=== PATIENT | female | born 1990 | race American Indian/Alaskan Native ===

== ENCOUNTER 2016-12-12 18:39 | Emergency (ER) | payer MEDICAID ==
[2016-12-12 19:27] VITALS: BP 115/74
[2016-12-12] MEDS ORDERED: Cephalexin 250 MG Cap PO ONE (19:40)
[2016-12-12] MEDS ORDERED: Diphtheria,Pertussis(Acell),Tetanus Vaccine 0.5 ML SDV IM ONE (19:40)
--- NOTE | 2016-12-12 19:44 | EDM.PDOC ---
ED HPI ANIMAL BITE - General Time Seen by Provider: 12/12/16 19:41 Chief Complaint: Bite:Animal, Insect Stated Complaint: FERRAL CAT BIT TO LEFT ARM Source of Information: Reports: Patient History Limitations: Reports: No limitations - History of Present Illness INITIAL COMMENTS - FREE TEXT/NARRATIVE: states a stray cat ran into house and was running all over and tried to get it out then it bit her. but they manage to capture the cat and brought it to the hospital. - Related Data Allergies Allergy/AdvReac Type Severity Reaction Status Date / Time No Known Allergies Allergy Verified 12/12/16 19:21 Home Meds: Home Meds Omeprazole Magnesium [Prilosec Otc] 20 mg PO DAILY 06/21/14 [History] PNV95/Ferrous Fumarate/FA [ Multivitamins] 1 each PO DAILY 06/21/14 [ History] Aspirin 81 mg PO BRK 12/12/16 [History] Past Medical History HEENT History: Reports: None Cardiovascular History: Reports: None Respiratory History: Reports: None Gastrointestinal History: Reports: None Genitourinary History: Reports: None GROUNDS KEEPER History: Reports: None Musculoskeletal History: Reports: None Neurological History: Reports: None Psychiatric History: Reports: None Endocrine/Metabolic History: Reports: None Hematologic History: Reports: None Oncologic (Cancer) History: Reports: None Dermatologic History: Reports: None - Past Surgical History Female Surgical History: Reports: section Other Female Surgeries/Procedures: second , 1 child at home Social & Family History - Tobacco Use Smoking Status *Q: Never Smoker Years of Tobacco use: 1 Used Tobacco, but Quit: Yes Month Tobacco Last Used: October Second Hand Smoke Exposure: No - Alcohol Use Days Per Week of Alcohol Use: 0 - Recreational Drug Use Recreational Drug Use: No - Living Situation & Occupation Living situation: Reports: with significant other Occupation: employed ED ROS GENERAL - Review of Systems Review Of Systems: ROS reveals no pertinent complaints other than HPI. ED EXAM, ANIMAL BITE - Physical Exam Exam: See Below Exam Limited By: No limitations General Appearance: alert, WD/WN, no apparent distress Ears: hearing grossly normal Throat/Mouth: Normal voice, No airway compromise Head: atraumatic Neck: non-tender, full range of motion Respiratory/Chest: no respiratory distress Cardiovascular: regular rate, rhythm GI/Abdominal: soft, non tender Extremities: other (left wrist cat bite francoise, some punctures without bleeding, rom NL, NV wnl.) Neurological: alert, oriented, normal cognition, normal gait, no motor/sensory deficits Psychiatric: normal affect, normal mood Skin Exam: Normal color, Warm/dry Course - Vital Signs Last Recorded V/S: Last Vital Signs Temp 36.1 C 12/12/16 19:23 Pulse 95 12/12/16 19:23 Resp 16 12/12/16 19:23 BP 115/74 12/12/16 19:23 Pulse Ox 97 12/12/16 19:23 - Orders/Labs/Meds Orders: Active Orders 24 hr Category Date Time Status Vaccines to be Administered [RC] PER UNIT ROUTINE Care 12/12/16 19:40 Ordered Cephalexin [Keflex] Med 12/12/16 19:40 Once 250 mg PO ONETIME ONE Diphth,Pertuss(Acell),Tet Vac [Adacel] Med 12/12/16 19:40 Once 0.5 ml IM .ONCE ONE Departure - Departure Time of Disposition: 19:43 Disposition: Home, Self-Care 01 Condition: good Clinical Impression: Cat bite involving extremity Instructions: Animal Bite, [id number] Forms: ED Department Discharge Additional Instructions: 1) keep wound clean dry covered 2) follow up at clinic or recheck as needed rx given: keflex 250mg qid x 40 - My Orders Last 24 Hours: My Active Orders 12/12/16 19:40 Vaccines to be Administered [RC] PER UNIT ROUTINE Cephalexin [Keflex] 250 mg PO ONETIME ONE Diphth,Pertuss(Acell),Tet Vac [Adacel] 0.5 ml IM .ONCE ONE - Assessment/Plan Last 24 Hours: My Active Orders 12/12/16 19:40 Vaccines to be Administered [RC] PER UNIT ROUTINE Cephalexin [Keflex] 250 mg PO ONETIME ONE Diphth,Pertuss(Acell),Tet Vac [Adacel] 0.5 ml IM .ONCE ONE
== END 2016-12-12 20:05 | disposition home or self-care (01) ==
LOC: DL.ED 18:39
DX: S61.532A Puncture wound without foreign body of left wrist, initial encounter (principal); Z79.82 Long term (current) use of aspirin; Z79.899 Other long term (current) drug therapy; W55.01XA Bitten by cat, initial encounter
CPT/HCPCS: 99283; A9270

== ENCOUNTER 2017-01-01 04:27 | Inpatient (IN) | payer MEDICAID, SELFPAY ==
[2017-01-01] MEDS ORDERED: Misoprostol 400 MCG (4 X 100 MCG TAB) RECTAL ONE (06:28)
[2017-01-01] MEDS ORDERED: Sodium Chloride 0.9% 10 ML Syringe FLUSH PRN (06:28)
[2017-01-01] MEDS ORDERED: Carboprost Tromethamine 250 MCG/1 ML Amp IM PRN (06:28)
[2017-01-01] MEDS ORDERED: ceFAZolin 2 GM in Premix Bag 1 BAG IV ONE (06:28)
[2017-01-01] MEDS ORDERED: Methylergonovine 0.2 MG Tab PO PRN (06:28)
[2017-01-01] MEDS ORDERED: Ondansetron 4 MG/2 ML SDV IVPUSH PRN (06:28)
[2017-01-01] MEDS ORDERED: Citric Acid/Sodium Citrate Solution 30 ML Cup PO ONE (06:28)
[2017-01-01] MEDS: Lactated Ringers 1,000 ML IV SCH ×3 (06:30→17:26)
[2017-01-01] MEDS ORDERED: Ondansetron 4 MG/2 ML SDV IV PRN (06:42)
[2017-01-01] MEDS ORDERED: Naloxone 2 MG/2 ML Syringe IVPUSH PRN (06:42)
[2017-01-01] MEDS ORDERED: Acetaminophen/oxyCODONE 325-5 MG Tab PO PRN (06:42)
[2017-01-01] MEDS ORDERED: Methylergonovine 0.2 MG/1 ML Amp IM PRN (06:42)
[2017-01-01] MEDS ORDERED: Acetaminophen 325 MG Tab PO PRN (06:42)
[2017-01-01] MEDS ORDERED: diphenhydrAMINE 50 MG/ML SDV IVPUSH PRN (06:42)
[2017-01-01] MEDS ORDERED: ePHEDrine 50 MG/ML SDV IVPUSH PRN (06:42)
[2017-01-01] MEDS ORDERED: Oxytocin/Normal Saline 30 UNIT/500 ML BAG IV SCH (06:45)
[2017-01-01] MEDS ORDERED: Ketorolac 30 MG/ML SDV IVPUSH ONE (06:51)
[2017-01-01] MEDS ORDERED: Oxytocin/Normal Saline 60 UNIT/1,000 ML BAG ONE (07:07)
[2017-01-01] MEDS ORDERED: Midazolam 1 MG/ML 2 ML SDV ONE (07:30)
[2017-01-01] MEDS ORDERED: Morphine PF 5 MG/10 ML SDV ONE ×2 (07:31→15:57)
--- NOTE | 2017-01-01 07:35 | PCM.PREANE ---
Preanesthetic Assessment - Procedure Proposed Procedure: Section - Anesthesia/Transfusion/Family Hx Anesthesia History: Prior Anesthesia Without Reaction Type of Anesthesia Reaction: Unknown Family History of Anesthesia Reaction: No Transfusion History: No Prior Transfusion(s) Intubation History: Unknown - Review of Systems General: No Symptoms Pulmonary: No Symptoms Cardiovascular: No Symptoms Gastrointestinal: No symptoms Neurological: No Symptoms Other: Reports: None - Physical Assessment NPO Status Date: 12/31/16 NPO Status Time: 21:00 O2 Sat by Pulse Oximetry: 95 Respiratory Rate: 18 Vital Signs: Last Vital Signs Temp 36.8 C 01/01/17 06:14 Pulse 96 01/01/17 06:14 Resp 18 01/01/17 06:14 BP 111/80 01/01/17 06:14 Pulse Ox 95 01/01/17 06:14 Height: 1.73 m Weight: 89.358 kg ASA Class: 2 Mental Status: Alert & Oriented x3 Airway Class: Mallampati = 2 Dentition: Reports: Normal Dentition ROM/Head Extension: Full Lungs: Clear to auscultation, Normal respiratory effort Cardiovascular: Regular Rate, Regular Rhythm - Lab Values: Laboratory Last Values WBC 8.5 10^3/uL (5.0-10.0) 01/01/17 06:20 RBC 3.90 10^6/uL (4.2-5.4) L 01/01/17 06:20 Hgb 12.8 g/dL (12.0-16.0) 01/01/17 06:20 Hct 38.0 % (37.0-47.0) 01/01/17 06:20 MCV 97.4 fL (80-100) 01/01/17 06:20 MCH 32.8 pg (27.0-34.0) 01/01/17 06:20 MCHC 33.7 g/dL (33.0-35.0) 01/01/17 06:20 Plt Count 205 10^3/uL (150-450) 01/01/17 06:20 - Allergies Allergies/Adverse Reactions: Allergies Allergy/AdvReac Type Severity Reaction Status Date / Time No Known Allergies Allergy Verified 01/01/17 07:10 - Blood Blood Available: No - Anesthesia Plan Pre-Op Medication Ordered: None - Acknowledgements Anesthesia Type Planned: Spinal, MAC Pt an Appropriate Candidate for the Planned Anesthesia: Yes Alternatives and Risks of Anesthesia Discussed w Pt/Guardian: Yes Pt/Guardian Understands and Agrees with Anesthesia Plan: Yes PreAnesthesia Questionnaire HEENT History: Reports: None Cardiovascular History: Reports: None Respiratory History: Reports: None Gastrointestinal History: Reports: None Genitourinary History: Reports: None PROMOTIONS INTERN History: Reports: Musculoskeletal History: Reports: None Neurological History: Reports: None Psychiatric History: Reports: None Endocrine/Metabolic History: Reports: None Hematologic History: Reports: None Oncologic (Cancer) History: Reports: None Dermatologic History: Reports: None - Past Surgical History Female Surgical History: Reports: section Other Female Surgeries/Procedures: second , 1 child at home - SUBSTANCE USE Smoking Status *Q: Never Smoker Second Hand Smoke Exposure: No Days Per Week of Alcohol Use: 0 Recreational Drug Use History: No - HOME MEDS Home Medications: Home Meds Omeprazole Magnesium [Prilosec Otc] 20 mg PO DAILY 06/21/14 [History] PNV95/Ferrous Fumarate/FA [ Multivitamins] 1 each PO DAILY 06/21/14 [ History] Aspirin 81 mg PO BRK 12/12/16 [History] - CURRENT (IN HOUSE) MEDS Current Meds: Current Medications Acetaminophen (Tylenol) 650 mg PO Q6H PRN PRN Reason: mild pain or fever Carboprost Tromethamine (Hemabate Ds) 250 mcg IM ASDIRECTED PRN PRN Reason: Excessive vaginal bleeding Stop: 01/08/17 06:29 Diphenhydramine HCl (Benadryl) 25 mg IVPUSH Q6H PRN PRN Reason: Itching or Nausea Docusate Sodium (Colace) 100 mg PO Q12H PRN PRN Reason: Constipation Ephedrine Sulfate (Ephedrine Sulfate) 5 mg IVPUSH SEECOMMENT PRN PRN Reason: Other Ferrous Sulfate (Ferrous Sulfate) 325 mg PO BRK ALICE Oxytocin/Sodium Chloride (Pitocin In Ns 30 Unit/500 Ml) 30 unit in 500 mls @ 500 mls/hr IV TITRATE ALICE; 500 MUNITS/MIN PRN Reason: Protocol Lactated Ringer's (Ringers, Lactated) 1,000 mls @ 125 mls/hr IV ASDIRECTED ALICE Ibuprofen (Motrin) 800 mg PO Q8H PRN PRN Reason: mild pain or fever Ketorolac Tromethamine (Toradol) 15 mg IVPUSH Q6H ALICE Stop: 01/02/17 01:01 Methylergonovine Maleate (Methergine) 0.2 mg PO ONETIME PRN PRN Reason: Excessive vaginal bleeding Methylergonovine Maleate (Methergine) 0.2 mg IM ONETIME PRN PRN Reason: Excessive Vaginal Bleeding Naloxone HCl (Narcan) 0.1 mg IVPUSH SEECOMMENT PRN PRN Reason: Respiratory Depression Ondansetron HCl (Zofran) 4 mg IVPUSH Q4H PRN PRN Reason: Nausea/Vomiting Ondansetron HCl (Zofran) 4 mg IV Q4H PRN PRN Reason: Nausea/Vomiting Oxycodone/Acetaminophen (Percocet 325-5 Mg) 1 tab PO Q4H PRN PRN Reason: Pain (moderate 4-6) Oxycodone/Acetaminophen (Percocet 325-5 Mg) 2 tab PO Q4H PRN PRN Reason: Pain (moderate 4-6) Prenat Multivit/Neurology Professor/Iron/Folic Ac ( Plus Iron) 1 each PO DAILY [facility] Simethicone (Simethicone) 80 mg PO Q4H PRN PRN Reason: Gas Sodium Chloride (Saline Flush) 10 ml FLUSH ASDIRECTED PRN PRN Reason: Keep Vein Open Discontinued Medications Citric Acid/Sodium Citrate (Bicitra Solution) 30 ml PO ONETIME ONE Stop: 01/01/17 06:29 Cefazolin Sodium/Dextrose 2 gm (/ Premix) 50 mls @ 100 mls/hr IV ONETIME ONE Stop: 01/01/17 06:57 Oxytocin/Sodium Chloride (Pitocin In Ns 30 Unit/500 Ml) Confirm Administered Dose 60 unit in 1,000 mls @ as directed .ROUTE .STK-MED ONE Stop: 01/01/17 07:08 Ketorolac Tromethamine (Toradol) 30 mg IVPUSH ONETIME ONE Stop: 01/01/17 06:52 Misoprostol (Cytotec) 800 mcg RECTAL ASDIRECTED ONE Stop: 01/01/17 06:29
--- NOTE | 2017-01-01 11:07 | OR ---
DATE: 01/01/2017 PREOPERATIVE DIAGNOSES: 1. A 39 and 0/7th weeks based on last menstrual period confirmed with 20-week ultrasound. 2. History of preeclampsia. 3. History of prior section. 4. History of low TSH in the first trimester resolved spontaneously. 5. Poor growth initially noted and since has resolved. 6. Blood type O positive. Rubella immune. Group B strep positive. 7. Cat bite in the 3rd trimester treated with rabies shots, which were completed 2 days prior to admission. POSTOPERATIVE DIAGNOSES: 1. A 39 and 0/7th weeks based on last menstrual period confirmed with 20-week ultrasound. 2. History of preeclampsia. 3. History of prior section. 4. History of low TSH in the first trimester resolved spontaneously. 5. Poor growth initially noted and since has resolved. 6. Blood type O positive. Rubella immune. Group B strep positive. 7. Cat bite in the 3rd trimester treated with rabies shots, which were completed 2 days prior to admission. 8. Status post elective repeat section at term plus delivery of viable female . PROCEDURE: Elective Repeat Low Transverse Section SURGEON: Corrine Mckeon MD LANDSCAPE SPECIALIST: Tania Gallardo MD. SECOND WIRE TRANSFER CLERK: Osiris Farias MS III CONSENT: Discussed with the patient and her family. INDICATIONS: Risks, benefits, and alternatives of elective repeat section at term including risk of infection, plan for preoperative antibiotics, risk of blood loss to the point of requiring a blood transfusion as well as inherent risks such as contraction of blood borne disease, introduction of antibodies not previously known to her or transfusion reaction, potential injury during surgery including but not limited to disruption of large blood vessels or nerves, muscles, bladder, uterus, fallopian tubes, ovaries, intestines, and any other internal or adjacent structures, even potential risk of injury to the baby, potential for complications for mom and/or baby, which would require transfer to a tertiary center and even remote risk of . The patient's questions were answered. She agreed to proceed. Consent form signed and in the chart. BRIEF HISTORY: The patient is a 26-year-old with the above-listed history who presents to the hospital for elective repeat at term. See history and physical for full details. DETAILS: The patient was brought down to the operating room and spinal anesthesia obtained. She was laid in the dorsal supine position with leftward tilt, and Hubbard indwelling catheter was placed. She was then prepped and draped in the usual fashion and anesthesia tested. She had a skin incision at 8:10 a.m. which is carried down to the underlying fascia using a combination of finger dissection and cautery. Fascia was incised in the midline and extended bilaterally with traction and Lacey scissors. Superior fascial edge grasped, tented up with Anil's and rectus muscles dissected off bluntly and with cautery. Inferior fascial edge was then grasped tented up, and rectus muscles also dissected off with traction and cautery. Peritoneal layer opened with blunt finger dissection and Donavan retractor then placed. Hysterotomy incision was made with scalpel and final penetration of the uterus with a blunt penetration using my finger and uterine incision site opened with Pardo method. 's head was then brought up through the incision site and with fundal pressure. Baby's head was delivered. Nuchal cord was noted and reduced bluntly. Mouth and nose were bulb suctioned and remainder of delivered thereafter. Three-vessel umbilical cord doubly clamped and cut. Baby taken over to the warmer for further evaluation. Cord blood sample obtained. Placenta then delivered by gentle cord traction and concomitant uterine massage. Uterus cleared off any clots and debris. Hysterotomy site then closed with a running lock stitch of 0 Vicryl in the usual fashion. Second layer of imbricated 0 Vicryl was then used. There were some additional areas of bleeding, which were controlled with 2 [id number] sutures. This layer was then irrigated and hemostasis confirmed. Donavan retractor removed. Pericolic gutters were cleared of any clots and debris. Hysterotomy site reinspected and remained hemostatic. Peritoneal layer was then closed with a running stitch of 0 Vicryl, which came together nicely. This layer was then irrigated and fascia closed with a running stitch of 0 looped PDS in the usual fashion. Subcutaneous tissues irrigated and cleared of any clots and debris and subcutaneous bleeders controlled with cautery and then skin closed with a 4-0 Monocryl suture on a Brice needle. The patient tolerated procedure well. Sponge and instrument counts were correct x3 and the patient will be taken to the PACU for recovery and down to see her baby. FINDINGS: Normal internal anatomy. Scarring was minimal considering prior surgical history. Baby is a girl weighing 3110 g, 6 pounds 14 ounces. scores of 9 and 9. ESTIMATED BLOOD LOSS: 700 mL. URINE OUTPUT: 200 mL. IV FLUIDS: 1700 mL of crystalloids. COMPLICATIONS: None. Note, baby's delivery time was 8:18 a.m. and stop time for surgery 9:00 a.m. [facility] /[id number] REBECCA
[2017-01-01] MEDS ORDERED: Ketorolac 30 MG/ML SDV IVPUSH SCH (13:00)
[2017-01-01] MEDS ORDERED: Midazolam 1 MG/ML 2 ML SDV IV ONE (15:57)
[2017-01-01] MEDS ORDERED: fentaNYL 100 MCG/2 ML SDV ONE (15:57)
[2017-01-01] MEDS ORDERED: ePHEDrine 50 MG/ML SDV IV ONE (15:57)
[2017-01-01] MEDS ORDERED: Ondansetron 4 MG/2 ML SDV IV ONE (15:57)
[2017-01-01] MEDS: Ketorolac 30 MG/ML SDV IVPUSH SCH ×2 (16:19→21:21)
[2017-01-01] MEDS: Ferrous Sulfate 325 MG Tab PO SCH (17:45)
[2017-01-01] MEDS: Prenatal Multivitamin with Calcium/Folic Acid/Iron Tab PO SCH (17:46)
[2017-01-01] MEDS: Docusate Sodium 100 MG Cap PO PRN (21:21)
[2017-01-01] MEDS: Acetaminophen/oxyCODONE 325-5 MG Tab PO PRN (21:48)
[2017-01-02] MEDS: Acetaminophen/oxyCODONE 325-5 MG Tab PO PRN ×5 (01:59→21:18)
[2017-01-02] MEDS: Ketorolac 30 MG/ML SDV IVPUSH SCH (03:14)
--- NOTE | 2017-01-02 08:46 | PCM.PNPP ---
- General Info Date of Service: 01/02/17 (POD # 1 S/P Repeat section) Functional Status: Reports: pain controlled, tolerating diet, ambulating - Review of Systems General: Reports: No Symptoms HEENT: Reports: no symptoms Pulmonary: Reports: no symptoms Cardiovascular: Reports: No Symptoms Gastrointestinal: Reports: No symptoms Genitourinary: Reports: no symptoms Musculoskeletal: Reports: no symptoms Skin: Reports: no symptoms Neurological: Reports: No Symptoms Psychiatric: Reports: no symptoms - General Info Date of Service: 01/02/17 (POD # 1 S/P Repeat section) - Patient Data Vital Signs - most recent: Last Vital Signs Temp 97.5 F 01/02/17 05:00 Pulse 64 01/02/17 05:00 Resp 16 01/02/17 05:00 BP 110/62 01/02/17 05:00 Pulse Ox 100 01/02/17 05:00 Weight - most recent: 197 lb I&O - last 24 hours: Intake & Output 01/01/17 01/02/17 01/02/17 22:59 06:59 14:59 Intake Total 1000 1000 Output Total 400 1600 Balance 600 -600 Lab Results - last 24 hrs: Laboratory Results - last 24 hr 01/01/17 Range/Units 06:20 Blood Type O POSITIVE Gel Antibody Screen Negative Med Orders - Current: Current Medications Acetaminophen (Tylenol) 650 mg PO Q6H PRN PRN Reason: mild pain or fever Carboprost Tromethamine (Hemabate Ds) 250 mcg IM ASDIRECTED PRN PRN Reason: Excessive vaginal bleeding Stop: 01/08/17 06:29 Diphenhydramine HCl (Benadryl) 25 mg IVPUSH Q6H PRN PRN Reason: Itching or Nausea Docusate Sodium (Colace) 100 mg PO Q12H PRN PRN Reason: Constipation Last Admin: 01/01/17 21:21 Dose: 100 mg Ephedrine Sulfate (Ephedrine Sulfate) 5 mg IVPUSH SEECOMMENT PRN PRN Reason: Other Ferrous Sulfate (Ferrous Sulfate) 325 mg PO BRK ALICE Last Admin: 01/01/17 17:45 Dose: Not Given Oxytocin/Sodium Chloride (Pitocin In Ns 30 Unit/500 Ml) 30 unit in 500 mls @ 500 mls/hr IV TITRATE ALICE; 500 MUNITS/MIN PRN Reason: Protocol Last Titration: 01/01/17 11:10 Dose: 0 mls/hr Lactated Ringer's (Ringers, Lactated) 1,000 mls @ 125 mls/hr IV ASDIRECTED [facility] Last Admin: 01/01/17 17:26 Dose: 125 mls/hr Ibuprofen (Motrin) 800 mg PO Q8H PRN PRN Reason: mild pain or fever Methylergonovine Maleate (Methergine) 0.2 mg PO ONETIME PRN PRN Reason: Excessive vaginal bleeding Methylergonovine Maleate (Methergine) 0.2 mg IM ONETIME PRN PRN Reason: Excessive Vaginal Bleeding Naloxone HCl (Narcan) 0.1 mg IVPUSH SEECOMMENT PRN PRN Reason: Respiratory Depression Ondansetron HCl (Zofran) 4 mg IVPUSH Q4H PRN PRN Reason: Nausea/Vomiting Ondansetron HCl (Zofran) 4 mg IV Q4H PRN PRN Reason: Nausea/Vomiting Oxycodone/Acetaminophen (Percocet 325-5 Mg) 1 tab PO Q4H PRN PRN Reason: Pain (moderate 4-6) Oxycodone/Acetaminophen (Percocet 325-5 Mg) 2 tab PO Q4H PRN PRN Reason: Pain (moderate 4-6) Last Admin: 01/02/17 06:17 Dose: 2 tab Prenat Multivit/[place]/Iron/Folic Ac ( Plus Iron) 1 each PO DAILY [facility] Last Admin: 01/01/17 17:46 Dose: Not Given Simethicone (Simethicone) 80 mg PO Q4H PRN PRN Reason: Gas Sodium Chloride (Saline Flush) 10 ml FLUSH ASDIRECTED PRN PRN Reason: Keep Vein Open Discontinued Medications Citric Acid/Sodium Citrate (Bicitra Solution) 30 ml PO ONETIME ONE Stop: 01/01/17 06:29 Last Admin: 01/01/17 07:30 Dose: 30 ml Ephedrine Sulfate (Ephedrine Sulfate) 10 mg IV .STK-MED ONE Stop: 01/01/17 15:58 Fentanyl (Sublimaze) 20 mcg .XX .STK-MED ONE Stop: 01/01/17 15:58 Cefazolin Sodium/Dextrose 2 gm (/ Premix) 50 mls @ 100 mls/hr IV ONETIME ONE Stop: 01/01/17 06:57 Last Admin: 01/01/17 07:44 Dose: 100 mls/hr Oxytocin/Sodium Chloride (Pitocin In Ns 30 Unit/500 Ml) Confirm Administered Dose 60 unit in 1,000 mls @ as directed .ROUTE .STK-MED ONE Stop: 01/01/17 07:08 Ketorolac Tromethamine (Toradol) 15 mg IVPUSH Q6H [facility] Stop: 01/02/17 01:01 Last Admin: 01/01/17 16:25 Dose: Not Given Ketorolac Tromethamine (Toradol) 30 mg IVPUSH ONETIME ONE Stop: 01/01/17 06:52 Last Admin: 01/01/17 09:45 Dose: 30 mg Ketorolac Tromethamine (Toradol) 15 mg IVPUSH Q6H [facility] Stop: 01/02/17 03:31 Last Admin: 01/02/17 03:14 Dose: 15 mg Midazolam HCl (Versed 1 Mg/Ml) Confirm Administered Dose 2 mg .ROUTE .STK-MED ONE Stop: 01/01/17 07:31 Midazolam HCl (Versed 1 Mg/Ml) 2 mg IV .STK-MED ONE Stop: 01/01/17 15:58 Misoprostol (Cytotec) 800 mcg RECTAL ASDIRECTED ONE Stop: 01/01/17 06:29 Last Admin: 01/01/17 16:25 Dose: Not Given Morphine Sulfate (Duramorph Pf) Confirm Administered Dose 5 mg .ROUTE .STK-MED ONE Stop: 01/01/17 07:32 Morphine Sulfate (Duramorph Pf) 0.25 mg .XX .STK-MED ONE Stop: 01/01/17 15:58 Ondansetron HCl (Zofran) 4 mg IV .STK-MED ONE Stop: 01/01/17 15:58 - Interaction Disposition, : in Room with Family Infant Interaction: Holding Infant Feeding: Breastfed ; Nursed Well Support Person: Significant Other - Recovery Exam Fundal Tone: Firm Fundal Level: At Umbilicus Fundal Placement: Midline Lochia Amount: Small Lochia Color: Rubra/Red Perineum Description: Intact, Minimal Bruising/Swelling Episiotomy/Laceration: None Bladder Status: Indwelling Catheter in Place Urinary Elimination: Indwelling Catheter - Exam General: alert, oriented, cooperative, no acute distress HEENT: Pupils equal, Pupils reactive Neck: supple Lungs: Clear to auscultation, Normal respiratory effort Cardiovascular: Regular Rate, Regular Rhythm, No Murmurs Abdomen: bowel sounds present, soft, no tenderness, no distension Extremities: no edema, normal pulses, no tenderness/swelling Skin: warm, dry, intact Wound/Incisions: dressing dry and intact, no drainage Neurological: no new focal deficit Psy/Mental Status: alert, normal affect, normal mood - Problem List Review Problem List Initiated/Reviewed/Updated: Yes - Assessment Assessment:: POD # 1 S/P Repeat section Doing well Good urinary output clear yellow urine Pain controlled. - Plan Plan:: Continue present care Remove Hubbard catheter Remove dressing Increase ambulation Shower
[2017-01-02] MEDS ORDERED: Ibuprofen 800 MG Tab PO PRN (09:00)
[2017-01-02] MEDS: Ferrous Sulfate 325 MG Tab PO SCH (09:13)
[2017-01-02] MEDS: Prenatal Multivitamin with Calcium/Folic Acid/Iron Tab PO SCH (09:13)
[2017-01-02] MEDS: Docusate Sodium 100 MG Cap PO PRN ×2 (09:14→21:18)
[2017-01-02] MEDS: Simethicone 80 MG Tab.Chew PO PRN ×2 (09:21→17:27)
[2017-01-03] MEDS: Acetaminophen/oxyCODONE 325-5 MG Tab PO PRN ×2 (01:24→05:50)
[2017-01-03] MEDS: Ferrous Sulfate 325 MG Tab PO SCH (08:58)
[2017-01-03] MEDS: Prenatal Multivitamin with Calcium/Folic Acid/Iron Tab PO SCH (08:59)
[2017-01-03] MEDS: Docusate Sodium 100 MG Cap PO PRN (09:00)
[2017-01-03] MEDS: Simethicone 80 MG Tab.Chew PO PRN ×2 (09:00→12:49)
--- NOTE | 2017-01-03 10:12 | DISCH ---
INDICATION FOR ADMISSION: Ms. Melendez is a 26-year-old, 2, para 1-0-0-1 female at 39 weeks gestation, who reported to Labor and Delivery for a repeat section at 39 weeks gestation. She had done quite well throughout her . Her only issue was that she had a cat bite in the third trimester and they did give her rabies prophylaxis injections, no issues occurred. She tolerated her section quite well. She went from the operating room to recovery and then to the OB floor. She tolerated the rest of her hospital stay quite well. She was afebrile. Vital signs were stable. She tolerated her diet well. She ambulated well. Her incision did well with no erythema or drainage noted. Her infant did well with breast feeding. She had a viable female , weighing 6 pounds, 14 ounces, 18.5 inches long with scores of 9 at 1 minute, 9 at 5 minutes. No other complications occurred throughout her hospital stay. She was afebrile. Vital signs were stable. LABORATORY AND DIAGNOSTIC STUDIES: On 01/01/2017, WBC 8.5, hemoglobin 12.8, hematocrit 38.0, and platelet count 205,000. 01/03/2017, WBC 9.6, hemoglobin 12.6, hematocrit 37.8, and platelet count 194,000. DISCHARGE INSTRUCTIONS: 1. Discharge to home. 2. Follow up with Dr. Betancourt next week for wound check and check. 3. Follow up 6-week checkup. 4. No douching, tampons, intercourse for 6 weeks. 5. Discharge instructions including activity, followup, medications, diet, and wound care were discussed with the patient. She understands these and is willing to comply with these. 6. Percocet 1 tablet every 8 hours p.r.n., for pain, dispensed #40 with no refills. 7. Ibuprofen 800 mg, 1 tab every 8 hours p.r.n., for pain, dispense #40 with 1 refill. DISCHARGE DIAGNOSES: 1. Thirty-nine week intrauterine . 2. Previous section x1. 3. Cat bite in third trimester of , given rabies prophylaxis injections. 4. Repeat low transverse section via Pfannenstiel skin incision with delivery of a viable female , weighing 6 pounds, 14 ounces, 18.5 Inches long with scores of 9 at 1 minute, 9 at 5 minutes. 5. Spinal anesthesia with Duramorph. [facility] /[id number] MTDD
[2017-01-03 14:41] VITALS: BP 131/76
--- NOTE | 2017-01-04 18:08 | PCM.POSTAN ---
POST ANESTHESIA ASSESSMENT - MENTAL STATUS Mental Status: alert, oriented - VITAL SIGNS Pulse Rate: 85 SaO2: 99 Resp Rate: 18 Blood Pressure: 132/78 Temperature: 36.5 C - RESPIRATORY Respiratory Status: respiratory rate WNL, airway patent, O2 saturation stable - CARDIOVASCULAR CV Status: pulse rate WNL, blood pressure stable - GASTROINTESTINAL GI Status: no symptoms - PAIN Pain Score: 0 - POST OP HYDRATION Hydration Status: adequate & stable (Sitting in bed pain free and deny nausea. Minor itching is reported by patient not to be bothersome.)
== END 2017-01-03 13:47 | disposition home or self-care (01) | DRG 766 ==
LOC: DL.OB 06:05 → OBSVTOIN 08:18
PROVIDERS: ADMIT Family Medicine; ATTEND Family Medicine
PROC: 10D00Z1 Extraction of Products of Conception, Low, Open Approach (ICD-10-PCS; principal; 2017-01-01)
DX: O34.211 Maternal care for low transverse scar from previous cesarean delivery (principal); Z3A.39 39 weeks gestation of pregnancy; Z37.0 Single live birth
CPT/HCPCS: 01961; 36415; 59025; 85025; 85027; 86850; 86900; 86901; A9270-GY; J0690; J1885; J2250; J2274; J2405; J2590; J3010; J7120

== ENCOUNTER 2017-04-08 16:58 | Emergency (ER) | payer MEDICAID ==
[2017-04-08] MEDS ORDERED: Sodium Chloride 0.9% 10 ML Syringe FLUSH PRN (17:53)
[2017-04-08] MEDS ORDERED: Ondansetron 4 MG/2 ML SDV IV ONE ×2 (17:53→19:03)
[2017-04-08] MEDS ORDERED: Sodium Chloride 0.9% 1,000 ML IV ONE (17:53)
[2017-04-08 18:29] LABS: CHLORIDE,CL 107 mmol/L (101-111); SODIUM,NA 140 mmol/L (135-145)
[2017-04-08] MEDS ORDERED: cefTRIAXone 1 GM in Sodium Chloride 0.9% 50 ML IV ONE (18:38)
[2017-04-08] MEDS ORDERED: Ketorolac 30 MG/ML SDV IVPUSH ONE (19:03)
--- NOTE | 2017-04-08 19:09 | EDM.PDOC ---
Scribed by Sinai Alicea 04/08/17 1909 for Mookie Nunes MD <Mookie Nunes - Last Filed: 04/08/17 19:08> ED HPI GENERAL MEDICAL PROBLEM - General Chief Complaint: Abdominal Pain Stated Complaint: DAY 3 OF THROWING UP, SEVERE ABD PAINS, [id number] Time Seen by Provider: 04/08/17 17:27 Source of Information: Reports: Patient, RN, RN Notes Reviewed History Limitations: Reports: No Limitations - History of Present Illness INITIAL COMMENTS - FREE TEXT/NARRATIVE: Wednesday ate chili in evening. Wednesday morning onset of diarrhea then nausea and vomiting later. Then okay after 7 to 8 hours. Wednesday evening ate soup and did okay. At 9 p.m. ate cereal and got sick with nausea, vomiting and diarrhea on Wednesday morning. Been sick with nausea, vomiting, and diarrhea on and off ever since then. Reports on and off fever and chills. Admits to left flank pain. Location: Reports: Abdomen Quality: Reports: Ache Severity: Moderate Improves with: Reports: None Worsens with: Reports: None Associated Symptoms: Reports: No Other Symptoms Left Lower Back Pain Score (Numeric/FACES): 10 - Related Data Allergies Allergy/AdvReac Type Severity Reaction Status Date / Time No Known Allergies Allergy Verified 04/08/17 17:12 Home Meds: Home Meds Desogestrel-Ethinyl Estradiol [[place] 28 Day Tablet] 1 each PO DAILY [History] Past Medical History HEENT History: Reports: None Cardiovascular History: Reports: None Respiratory History: Reports: None Gastrointestinal History: Reports: None Genitourinary History: Reports: None LISW History: Reports: : 2 Para: 2 LMP (Approximate): Other (See Below) (03/25/17, on control x2-1/2 months.) Musculoskeletal History: Reports: None Neurological History: Reports: None Psychiatric History: Reports: None Endocrine/Metabolic History: Reports: None Hematologic History: Reports: None Oncologic (Cancer) History: Reports: None Dermatologic History: Reports: None - Past Surgical History Female Surgical History: Reports: Section (x2, Delivered 3 months ago.) Social & Family History - Family History Family Medical History: Noncontributory - Tobacco Use Smoking Status *Q: Never Smoker Years of Tobacco use: 1 Used Tobacco, but Quit: Yes Month Tobacco Last Used: October Second Hand Smoke Exposure: No - Caffeine Use Caffeine Use: Reports: None - Alcohol Use Days Per Week of Alcohol Use: 0 - Recreational Drug Use Recreational Drug Use: No - Living Situation & Occupation Living situation: Reports: with Significant Other Occupation: Employed ED ROS GENERAL - Review of Systems Review Of Systems: ROS reveals no pertinent complaints other than HPI. ED EXAM, GI/ABD - Physical Exam Exam: See Below Exam Limited By: No Limitations General Appearance: Alert, WD/WN, No Apparent Distress Eyes: Bilateral: Normal Appearance Ears: Normal External Exam, Normal Canal, Hearing Grossly Normal, Normal TMs Nose: Normal Inspection, Normal Mucosa, No Blood Throat/Mouth: Other (dry oral membranes) Head: Atraumatic, Normocephalic Neck: Normal Inspection, Supple, Non-Tender, Full Range of Motion Respiratory/Chest: No Respiratory Distress, Lungs Clear, Normal Breath Sounds, No Accessory Muscle Use, Chest Non-Tender Cardiovascular: Normal Peripheral Pulses, Regular Rate, Rhythm, No Edema, No Gallop, No JVD, No Murmur, No Rub GI/Abdominal Exam: Normal Bowel Sounds, Soft, No Distention, Tender (to palpation at LUQ, LLQ, and suprapubic region. ). No: Guarding, Rigid, Rebound (Female) Exam: Deferred Rectal (Female) Exam: Deferred Back Exam: Normal Inspection, Full Range of Motion, NT Extremities: Normal Inspection, Normal Range of Motion, Non-Tender, Normal Capillary Refill, No Pedal Edema Neurological: Alert, Oriented, CN II-XII Intact, Normal Cognition, Normal Gait, Normal Reflexes, No Motor/Sensory Deficits Psychiatric: Normal Affect, Normal Mood Skin Exam: Warm, Dry, Intact, Normal Color, No Rash Course - Vital Signs Last Recorded V/S: Last Vital Signs Temp 36.8 C 04/08/17 20:18 Pulse 67 04/08/17 20:18 Resp 16 04/08/17 20:18 BP 117/69 04/08/17 20:18 Pulse Ox 99 04/08/17 20:18 - Orders/Labs/Meds Orders: Active Orders 24 hr Category Date Time Status Peripheral IV Care [RC] . DIRECTED Care 04/08/17 17:53 Active CHLAMYDIA TRACHOMATIS/GC AMPLF Routine Lab 04/08/17 17:04 Received CULTURE URINE [RM] Stat Lab 04/08/17 17:04 Received Sodium Chloride 0.9% [Saline Flush] Med 04/08/17 17:53 Active 10 ml FLUSH ASDIRECTED PRN Peripheral IV Insertion Adult [OM.PC] Stat Oth 04/08/17 17:52 Ordered Medication Orders Sodium Chloride (Saline Flush) 10 ml FLUSH ASDIRECTED PRN PRN Reason: Keep Vein Open Last Admin: 04/08/17 18:22 Dose: 10 ml Labs: Laboratory Tests 04/08/17 04/08/17 04/08/17 Range/Units 17:04 17:04 17:04 WBC (5.0-10.0) 10^3/uL RBC (4.2-5.4) 10^6/uL Hgb (12.0-16.0) g/dL Hct (37.0-47.0) % MCV (80-100) fL MCH (27.0-34.0) pg MCHC (33.0-35.0) g/dL Plt Count (150-450) 10^3/uL Neut % (Auto) (42.2-75.2) % Lymph % (Auto) (20.5-50.1) % [place] % (Auto) (2-8) % Eos % (Auto) (1.0-3.0) % Baso % (Auto) (0.0-1.0) % Sodium (135-145) mmol/L Potassium (3.6-5.0) mmol/L Chloride (101-111) mmol/L Carbon Dioxide (21.0-31.0) mmol/L Anion Gap BUN (7-18) mg/dL Creatinine (0.6-1.3) mg/dL Est Cr Clr Drug Dosing mL/min Estimated GFR (MDRD) BUN/Creatinine Ratio Glucose (74-105) mg/dL Calcium (8.4-10.2) mg/dl Total Bilirubin (0.2-1.0) mg/dL AST (10-42) IU/L ALT (10-60) IU/L Alkaline Phosphatase (42-121) IU/L Total Protein (6.7-8.2) g/dl Albumin (3.2-5.5) g/dl Globulin Albumin/Globulin Ratio Urine Color Yellow (YELLOW) Urine Appearance Slightly cloudy (CLEAR) Urine pH 6.0 (5.0-9.0) Ur Specific [place] 1.025 (1.005-1.030) Urine Protein 30 H (NEGATIVE) Urine Glucose (UA) Negative (NEGATIVE) Urine Ketones 40 H (NEGATIVE) Urine Occult Blood Moderate H (NEGATIVE) Urine Nitrite Negative (NEGATIVE) Urine Bilirubin Negative (NEGATIVE) Urine Urobilinogen 0.2 (0.2-1.0) mg/dL Ur Leukocyte Esterase Trace H (NEGATIVE) Urine RBC 20-30 H /HPF Urine WBC 5-10 H (0-5/HPF) /HPF Ur Epithelial Cells Many H /HPF Urine Bacteria Moderate H (0-FEW/HPF) /HPF Urine Mucus Rare /LPF Urine HCG, Qual Negative Urine Opiates Screen Negative (NEGATIVE) Ur Oxycodone Screen Negative (NEGATIVE) Urine Methadone Screen Negative (NEGATIVE) Ur Barbiturates Screen Negative (NEGATIVE) U Tricyclic Antidepress Negative (NEGATIVE) Ur Phencyclidine Scrn Negative (NEGATIVE) Ur Amphetamine Screen Negative (NEGATIVE) U Methamphetamines Scrn Negative (NEGATIVE) Urine MDMA Screen Negative (NEGATIVE) U Benzodiazepines Scrn Negative (NEGATIVE) Urine Cocaine Screen Negative (NEGATIVE) U Marijuana (THC) Screen Negative (NEGATIVE) 04/08/17 04/08/17 Range/Units 18:00 18:00 WBC 11.6 H (5.0-10.0) 10^3/uL RBC 4.27 (4.2-5.4) 10^6/uL Hgb 13.5 (12.0-16.0) g/dL Hct 39.9 (37.0-47.0) % MCV 93.4 (80-100) fL MCH 31.6 (27.0-34.0) pg MCHC 33.8 (33.0-35.0) g/dL Plt Count 203 (150-450) 10^3/uL Neut % (Auto) 86.9 H (42.2-75.2) % Lymph % (Auto) 8.7 L (20.5-50.1) % [place] % (Auto) 4.2 (2-8) % Eos % (Auto) 0.0 L (1.0-3.0) % Baso % (Auto) 0.2 (0.0-1.0) % Sodium 140 (135-145) mmol/L Potassium 4.0 (3.6-5.0) mmol/L Chloride 107 (101-111) mmol/L Carbon Dioxide 22.0 (21.0-31.0) mmol/L Anion Gap 15.0 BUN 14 (7-18) mg/dL Creatinine 1.0 (0.6-1.3) mg/dL Est Cr Clr Drug Dosing 86.75 mL/min Estimated GFR (MDRD) > 60 BUN/Creatinine Ratio 14.00 Glucose 95 (74-105) mg/dL Calcium 9.0 (8.4-10.2) mg/dl Total Bilirubin 0.5 (0.2-1.0) mg/dL AST 20 (10-42) IU/L ALT 14 (10-60) IU/L Alkaline Phosphatase 63 (42-121) IU/L Total Protein 7.7 (6.7-8.2) g/dl Albumin 4.0 (3.2-5.5) g/dl Globulin 3.7 Albumin/Globulin Ratio 1.08 Urine Color (YELLOW) Urine Appearance (CLEAR) Urine pH (5.0-9.0) Ur Specific [place] (1.005-1.030) Urine Protein (NEGATIVE) Urine Glucose (UA) (NEGATIVE) Urine Ketones (NEGATIVE) Urine Occult Blood (NEGATIVE) Urine Nitrite (NEGATIVE) Urine Bilirubin (NEGATIVE) Urine Urobilinogen (0.2-1.0) mg/dL Ur Leukocyte Esterase (NEGATIVE) Urine RBC /HPF Urine WBC (0-5/HPF) /HPF Ur Epithelial Cells /HPF Urine Bacteria (0-FEW/HPF) /HPF Urine Mucus /LPF Urine HCG, Qual Urine Opiates Screen (NEGATIVE) Ur Oxycodone Screen (NEGATIVE) Urine Methadone Screen (NEGATIVE) Ur Barbiturates Screen (NEGATIVE) U Tricyclic Antidepress (NEGATIVE) Ur Phencyclidine Scrn (NEGATIVE) Ur Amphetamine Screen (NEGATIVE) U Methamphetamines Scrn (NEGATIVE) Urine MDMA Screen (NEGATIVE) U Benzodiazepines Scrn (NEGATIVE) Urine Cocaine Screen (NEGATIVE) U Marijuana (THC) Screen (NEGATIVE) Meds: Medications Generic Name Dose Route Start Last Admin Trade Name Freq PRN Reason Stop Dose Admin Sodium Chloride 10 ml 04/08/17 17:53 04/08/17 18:22 Saline Flush FLUSH 10 ml ASDIRECTED PRN Administration Keep Vein Open Discontinued Medications Generic Name Dose Route Start Last Admin Trade Name Idalia PRN Reason Stop Dose Admin Sodium Chloride 1,000 mls @ 999 mls/hr 04/08/17 17:53 04/08/17 18:17 Normal Saline IV 04/08/17 18:53 999 mls/hr .BOLUS ONE Administration Ceftriaxone Sodium 1 gm/ 50 mls @ 100 mls/hr 04/08/17 18:38 04/08/17 18:47 Sodium Chloride IV 04/08/17 19:07 100 mls/hr ONETIME ONE Administration Ketorolac Tromethamine 30 mg 04/08/17 19:03 04/08/17 19:29 Toradol IVPUSH 04/08/17 19:04 30 mg ONETIME ONE Administration Ondansetron HCl 4 mg 04/08/17 17:53 04/08/17 18:17 Zofran IV 04/08/17 17:54 4 mg ONETIME ONE Administration Ondansetron HCl 4 mg 04/08/17 19:03 04/08/17 19:23 Zofran IV 04/08/17 19:04 4 mg ONETIME ONE Administration - Re-Assessments/Exams Free Text/Narrative Re-Assessment/Exam: 04/08/17 19:08 care of pt transferred to Rodger TAYLOR at 1900HR shift change. Departure - Departure Disposition: Home, Self-Care 01 Clinical Impression: Kidney stone on left side UTI (urinary tract infection) Qualifiers: Urinary tract infection type: site unspecified Hematuria presence: with hematuria Qualified Code(s): N39.0 - Urinary tract infection, site not specified ; R31.9 - Hematuria, unspecified - Discharge Information Instructions: Urinary Tract Infection, Adult, [id number], Kidney Stones, Easy -to-Read Forms: ED Department Discharge Care Plan Goals: The patient was advised of the examination, lab and CT results during the visit. The patient was given IV Zofran, IV Toradol, IV fluids, IV Rocephin and an oral dose of Flomax while in the ED. The patient was encouraged to take the medications as prescribed. The patient should follow-up with her primary care facility for continued evaluation and management. The patient was discharged with scripts for 1) Toradol (10 mg) #20 to take 1 by mouth every 6 hours, 2) Keflex (500 mg) #14 to take 1 by mouth 2 times per day for 7 days and 3) FloMax (0.4 mg) #4 to take 1 by mouth daily. If the patient has any additional symptoms or concerns, the patient should follow-up with her primary care facility or return to the emergency department. <Colt Garcia - Last Filed: 04/08/17 20:56> Course - Re-Assessments/Exams Free Text/Narrative Re-Assessment/Exam: 04/08/17 20:20 Patient care was taken over at shift change. Assessment, lab and prior treatments were reviewed. The patient reports her current pain is down to about a 2/10 and the nausea has subsided. The CT demonstrated a 4x8mm stone in the left ureter. Departure - Departure Time of Disposition: 20:46 Condition: Fair I have read and agree with the documentation that has been completed regarding this visit. By signing this record, I attest that the documentation was completed in my physical presence and is an accurate record of the encounter.
[2017-04-08 20:19] VITALS: BP 117/69
[2017-04-08] MEDS ORDERED: Tamsulosin 0.4 MG Cap.ER PO ONE (20:43)
[2017-04-08] MEDS ORDERED: Ketorolac 10 MG Tab PO ONE (20:53)
[2017-04-08] MEDS ORDERED: Ketorolac 10 MG Tab ONE (20:53)
== END 2017-04-08 21:26 | disposition home or self-care (01) ==
LOC: DL.ED 16:58
DX: N13.2 Hydronephrosis with renal and ureteral calculous obstruction (principal); N39.0 Urinary tract infection, site not specified; Z79.899 Other long term (current) drug therapy
CPT/HCPCS: 36415; 74176; 80053; 80305; 81001; 81025; 85025; 87086; 87491; 87591; 96365; 96366; 96368; 96375; 99284; A9270; J0696; J1885; J2405; J7030; J7050

== ENCOUNTER 2019-01-13 06:22 | Emergency (ER) | payer MEDICAID, SELFPAY ==
[2019-01-13] MEDS ORDERED: Fluconazole 100 MG Tab PO ONE (06:39)
[2019-01-13] MEDS ORDERED: Azithromycin 250 MG Tab PO ONE (06:39)
[2019-01-13 06:43] VITALS: BP 129/85; PULSE 96
--- NOTE | 2019-01-13 06:43 | EDM.PDOC ---
ED HPI GENERAL MEDICAL PROBLEM - General Chief Complaint: ENT Problem Stated Complaint: COLD,PAIN LEFT EAR [id number] Time Seen by Provider: 01/13/19 06:40 Source of Information: Reports: Patient History Limitations: Reports: No Limitations - History of Present Illness INITIAL COMMENTS - FREE TEXT/NARRATIVE: been Tx for sinus infection from clinic last week. then woke up with head congestion and ear pain, and cough. can't sleep. - Related Data Allergies Allergy/AdvReac Type Severity Reaction Status Date / Time No Known Allergies Allergy Verified 04/08/17 17:12 Home Meds: Home Meds Desogestrel-Ethinyl Estradiol [[place] 28 Day Tablet] 1 each PO DAILY [History] Past Medical History HEENT History: Reports: None Cardiovascular History: Reports: None Respiratory History: Reports: None Gastrointestinal History: Reports: None Genitourinary History: Reports: None [employer] History: Reports: Musculoskeletal History: Reports: None Neurological History: Reports: None Psychiatric History: Reports: None Endocrine/Metabolic History: Reports: None Hematologic History: Reports: None Oncologic (Cancer) History: Reports: None Dermatologic History: Reports: None - Infectious Disease History Infectious Disease History: Reports: Chicken Pox - Past Surgical History Female Surgical History: Reports: Section (x2, Delivered 3 months ago.) Social & Family History - Family History Family Medical History: Noncontributory - Caffeine Use Caffeine Use: Reports: None - Living Situation & Occupation Living situation: Reports: with Significant Other Occupation: Employed ED ROS ENT - Review of Systems Review Of Systems: ROS reveals no pertinent complaints other than HPI. ED EXAM, ENT - Physical Exam Exam: See Below Exam Limited By: No Limitations General Appearance: Alert, WD/WN, Mild Distress, Other (discomfort) Ears: Normal External Exam, Normal Canal, Hearing Grossly Normal, TM Dullness, TM Erythema, Other (left) Nose: Clear Rhinorrhea Mouth/Throat: Normal Inspection, Normal Oropharynx Head: Atraumatic Neck: Non-Tender, Full Range of Motion Respiratory/Chest: No Respiratory Distress Cardiovascular: Normal Peripheral Pulses GI/Abdominal: Soft, Non-Tender Neurological: Alert, Oriented, Normal Cognition, Normal Gait, No Motor/Sensory Deficits Psychiatric: Flat Affect Skin: Warm, Dry, Normal Color Lymphatic: No Adenopathy Course - Orders/Labs/Meds Orders: Active Orders 24 hr Category Date Time Status Azithromycin [Zithromax] Med 01/13/19 06:39 Once 500 mg PO ONETIME ONE Fluconazole [Diflucan] Med 01/13/19 06:39 Once 100 mg PO ONETIME ONE Departure - Departure Time of Disposition: 06:42 Disposition: Home, Self-Care 01 Condition: Good Clinical Impression: Sinusitis chronic, frontal Otitis media Qualifiers: Otitis media type: suppurative Chronicity: acute Laterality: left Recurrence: non-recurrent Spontaneous tympanic membrane rupture: without spontaneous rupture Qualified Code(s): H66.002 - Acute suppurative otitis media without spontaneous rupture of ear drum, left ear - Discharge Information Instructions: Otitis Media, Adult, [id number] Additional Instructions: 1) follow up at clinic rx given; [id number] - My Orders Last 24 Hours: My Active Orders 01/13/19 06:39 Azithromycin [Zithromax] 500 mg PO ONETIME ONE Fluconazole [Diflucan] 100 mg PO ONETIME ONE - Assessment/Plan Last 24 Hours: My Active Orders 01/13/19 06:39 Azithromycin [Zithromax] 500 mg PO ONETIME ONE Fluconazole [Diflucan] 100 mg PO ONETIME ONE
== END 2019-01-13 06:47 | disposition home or self-care (01) ==
LOC: DL.ED 06:22
DX: J32.1 Chronic frontal sinusitis (principal); H66.002 Acute suppurative otitis media without spontaneous rupture of ear drum, left ear; Z79.899 Other long term (current) drug therapy
CPT/HCPCS: 99282; A9270

== ENCOUNTER 2021-12-01 09:05 | Inpatient (IN) | payer MEDICAID ==
[2021-12-01] MEDS ORDERED: Oxytocin/Normal Saline 30 UNIT/500 ML BAG IV SCH (09:30)
[2021-12-01] MEDS ORDERED: Lactated Ringers 1,000 ML IV SCH ×2 (09:30)
[2021-12-01] MEDS ORDERED: Tranexamic Acid 1,000 MG in Sodium Chloride 0.9% 100 ML IV PRN (09:30)
[2021-12-01] MEDS ORDERED: Carboprost Tromethamine 250 MCG/1 ML Amp IM PRN (09:30)
[2021-12-01] MEDS ORDERED: Citric Acid/Sodium Citrate Solution 30 ML Cup PO ONE ×2 (09:30→11:45)
[2021-12-01] MEDS ORDERED: Methylergonovine 0.2 MG Tab PO PRN (09:30)
[2021-12-01] MEDS ORDERED: Sodium Chloride 0.9% 10 ML Syringe FLUSH SCH (09:30)
[2021-12-01] MEDS ORDERED: Famotidine 20 MG/2 ML SDV IVPUSH PRN (09:30)
[2021-12-01] MEDS ORDERED: ceFAZolin 2 GM in Premix Bag 1 BAG IV ONE (09:30)
[2021-12-01] MEDS ORDERED: Sodium Chloride 0.9% 10 ML Syringe FLUSH PRN (09:30)
[2021-12-01] MEDS ORDERED: Oxytocin 10 Units/1 ML SDV IM PRN (09:30)
[2021-12-01] MEDS ORDERED: Oxytocin/Normal Saline 60 UNIT/1,000 ML BAG ONE (09:55)
[2021-12-01] MEDS ORDERED: Dexamethasone 4 MG/ML SDV IV ONE (12:00)
[2021-12-01] MEDS ORDERED: Morphine PF 10 MG/10 ML SDV ONE (12:00)
[2021-12-01] MEDS ORDERED: Lactated Ringers 1,000 ML IV ONE (12:00)
[2021-12-01] MEDS ORDERED: Ondansetron 4 MG/2 ML SDV IV ONE (12:00)
[2021-12-01] MEDS ORDERED: Acetaminophen/oxyCODONE 325-5 MG Tab PO PRN (13:10)
[2021-12-01] MEDS ORDERED: ePHEDrine 50 MG/ML SDV IVPUSH PRN (13:10)
[2021-12-01] MEDS ORDERED: diphenhydrAMINE 50 MG/ML SDV IVPUSH PRN (13:10)
[2021-12-01] MEDS ORDERED: Naloxone 2 MG/2 ML Syringe IVPUSH PRN (13:10)
[2021-12-01] MEDS ORDERED: Ondansetron 4 MG/2 ML SDV IVPUSH PRN (13:10)
[2021-12-01] MEDS ORDERED: Misoprostol 400 MCG (4 X 100 MCG TAB) RECTAL PRN (13:10)
[2021-12-01] MEDS ORDERED: Acetaminophen 325 MG Tab PO PRN (13:10)
[2021-12-01] MEDS ORDERED: Oxytocin/Normal Saline 30 UNIT/500 ML BAG IV ONE (14:46)
[2021-12-01] MEDS: Simethicone 80 MG Tab.Chew PO SCH ×2 (17:49→22:37)
[2021-12-01] MEDS: Lactated Ringers 1,000 ML IV SCH (17:51)
[2021-12-01] MEDS: Ketorolac 30 MG/ML SDV IVPUSH SCH (19:25)
[2021-12-01] MEDS: Docusate Sodium 100 MG Cap PO PRN (22:37)
[2021-12-02] MEDS: Ketorolac 30 MG/ML SDV IVPUSH SCH ×2 (00:34→06:29)
[2021-12-02] MEDS: Lactated Ringers 1,000 ML IV SCH (00:35)
[2021-12-02] MEDS: Simethicone 80 MG Tab.Chew PO SCH ×4 (09:22→21:11)
[2021-12-02] MEDS: Docusate Sodium 100 MG Cap PO PRN ×2 (09:22→21:11)
[2021-12-02] MEDS: Ferrous Sulfate 325 MG Tab PO SCH (09:22)
[2021-12-02] MEDS: Prenatal Multivitamin with Calcium/Folic Acid/Iron Tab PO SCH (09:22)
[2021-12-02] MEDS: Acetaminophen/oxyCODONE 325-5 MG Tab PO PRN ×2 (13:19→21:11)
[2021-12-02] MEDS: Ibuprofen 800 MG Tab PO PRN ×2 (14:38→21:11)
[2021-12-03] MEDS: Prenatal Multivitamin with Calcium/Folic Acid/Iron Tab PO SCH (08:13)
[2021-12-03] MEDS: Docusate Sodium 100 MG Cap PO PRN (08:13)
[2021-12-03] MEDS: Acetaminophen/oxyCODONE 325-5 MG Tab PO PRN (08:13)
[2021-12-03] MEDS: Ferrous Sulfate 325 MG Tab PO SCH (08:13)
[2021-12-03] MEDS: Simethicone 80 MG Tab.Chew PO SCH (08:14)
[2021-12-03] MEDS: Ibuprofen 800 MG Tab PO PRN (08:14)
[2021-12-03 10:18] VITALS: BP 126/88; PULSE 84
== END 2021-12-03 09:50 | disposition home or self-care (01) | DRG 788 ==
LOC: DL.OB 09:05 → EDSTATUS 12:00
PROVIDERS: ADMIT Family Medicine; ATTEND Family Medicine
PROC: 10D00Z1 Extraction of Products of Conception, Low, Open Approach (ICD-10-PCS; principal; 2021-12-01)
DX: O34.211 Maternal care for low transverse scar from previous cesarean delivery (principal); Z37.0 Single live birth; O99.02 Anemia complicating childbirth; D64.9 Anemia, unspecified; Z3A.39 39 weeks gestation of pregnancy; Z86.16 Personal history of COVID-19; Z28.82 Immunization not carried out because of caregiver refusal
CPT/HCPCS: 01961; 36415; 51702; 59025; 82565; 82570; 83615; 84156; 84450; 84460; 84520; 84550; 85025; 85027; 85049; 86850; 86900; 86901; A9270-GY; J0690; J1100; J1885; J2270; J2405; J2590; J7120